=== PATIENT | female | born 2000 | race Caucasian/White ===

== ENCOUNTER 2025-05-09 15:20 | Emergency (ER) | payer OTHER ==
[~2025-05-09] VITALS: Ht 175.3 cm; Wt 112.7 kg
[2025-05-09 15:36] VITALS: TEMP 98.8
[2025-05-09] MEDS: FAMOTIDINE 20 MG/2 ML VIAL IVP ONE (18:12)
[2025-05-09 18:30] VITALS: BP 131/71
[2025-05-09 18:45] VITALS: O2SAT 97
[2025-05-09] MEDS ORDERED: EPIP0.3I2 IM (19:00)
[2025-05-09] MEDS ORDERED: PRED20TA PO (19:00)
== END 2025-05-09 19:05 | disposition home or self-care (01) ==
LOC: M ED 15:20
DX: T78.40XA Allergy, unspecified, initial encounter (principal); F17.210 Nicotine dependence, cigarettes, uncomplicated; Z88.0 Allergy status to penicillin; Z88.1 Allergy status to other antibiotic agents; Z79.52 Long term (current) use of systemic steroids; Z79.899 Other long term (current) drug therapy
CPT/HCPCS: 93005; 93041; 94760; 96374; 99285; J1308